=== PATIENT | female | born 1990 | race Caucasian/White ===

== ENCOUNTER 2017-04-25 09:51 | Emergency (ER) | payer OTHER ==
[2017-04-25 09:59] VITALS: BMI 22.1
[2017-04-25 10:00] VITALS: TEMP 98.4
--- NOTE | 2017-04-25 10:21 | ED PDOC ---
Arrival/HPI - General Historian: Patient - History of Present Illness Time/Duration: 24 hours Symptom Onset: Sudden Symptom Course: Unchanged Context: Home <KleberanayeliJanet - Last Filed: 04/25/17 18:07> <Kevin Matos - Last Filed: 04/25/17 18:27> - General Chief Complaint: Shortness Of Breath Time Seen by Provider: 04/25/17 09:55 - History of Present Illness Narrative History of Present Illness (Text): 04/25/17 10:17 26 year old female with past medical history of nephrolithiasis presents for SOB that began last night. Patient states that as she was trying to go to sleep , she began to feel SOB and was unable to catch her breath. Shortness of breath has been constant all the way to this morning. She denies using any thing for SOB. Also c/o subjective fevers and nausea. Denies having any cough, abd pain , chest pain, sick contacts. She recently returned from [place] on a long plane ride about 2 weeks ago. After the ride, patient felt her left lower leg was aching for a few days which she attributed to feeling tired. Ache went away on its own. No history of blood clots. No history of smoking or OCP use. (Janet Perez) Past Medical History - Provider Review Nursing Documentation Reviewed: Yes - Genitourinary/Gynecological Other/Comment: Kidney stones - Psychiatric Hx Substance Use: No <Janet Perez - Last Filed: 04/25/17 18:07> Family/Social History - Physician Review Nursing Documentation Reviewed: Yes Family/Social History: No Known Family HX Smoking Status: Never Smoked Hx Alcohol Use: No Hx Substance Use: No <Janet Perez - Last Filed: 04/25/17 18:07> Allergies/Home Meds <Janet Perez - Last Filed: 04/25/17 18:07> <Kevin Matos - Last Filed: 04/25/17 18:27> Allergies/Adverse Reactions: Allergies No Known Allergies Allergy (Verified 04/25/17 09:58) Home Medications: Home Meds Medication Instructions Recorded Confirmed No Known Home Med 04/25/17 04/25/17 Review of Systems - Review of Systems Constitutional: Fevers (subjective). absent: Fatigue, Night Sweats Eyes: Normal ENT: Normal. absent: Sore Throat, Rhinorrhea, Sinus Congestion Respiratory: SOB. absent: Cough, Sputum, Wheezing Cardiovascular: Normal. absent: Chest Pain, Palpitations, Edema, Calf Pain Gastrointestinal: Nausea. absent: Abdominal Pain, Constipation, Diarrhea, Vomiting Genitourinary Female: Normal. absent: Dysuria, Vaginal Bleeding Musculoskeletal: Normal Skin: Normal. absent: Rash, Skin Lesions Neurological: Normal. absent: Headache, Dizziness Endocrine: Normal. absent: Diaphoresis Hemo/Lymphatic: Normal Psychiatric: Normal. absent: Anxiety, Depression <Ana,Janet - Last Filed: 04/25/17 18:07> Physical Exam Temperature: Afebrile Blood Pressure: Normal Pulse: Tachycardic Respiratory Rate: Normal Appearance: Positive for: Well-Appearing, Non-Toxic, Comfortable Pain Distress: None Mental Status: Positive for: Alert and Oriented X 3 - Systems Exam Head: Present: Atraumatic, Normocephalic Pupils: Present: PERRL Extroacular Muscles: Present: EOMI Conjunctiva: Present: Normal Mouth: Present: Moist Mucous Membranes Respiratory/Chest: Present: Clear to Auscultation, Good Air Exchange. No: Respiratory Distress, Accessory Muscle Use, Wheezes, Decreased Breath Sounds, Rales, Retracting, Rhonchi Cardiovascular: Present: Normal S1, S2, Tachycardic. No: Murmurs, Irregular Rhythm, Rub, Gallop Abdomen: Present: Normal Bowel Sounds. No: Tenderness, Distention, Peritoneal Signs Upper Extremity: Present: Normal Inspection, NORMAL PULSES. No: Cyanosis, Edema Lower Extremity: Present: Normal Inspection, NORMAL PULSES. No: Edema, CALF TENDERNESS Neurological: Present: GCS=15, CN II-XII Intact, Speech Normal Skin: Present: Warm, Dry, Normal Color. No: Rashes Psychiatric: Present: Alert, Oriented x 3, Normal Insight, Normal Concentration <Ana,Janet - Last Filed: 04/25/17 18:07> Medical Decision Making - EKG Interpretation Interpreted by ED Physician: Yes Type: 12 lead EKG <Ana,Janet - Last Filed: 04/25/17 18:07> <Kevin Matos - Last Filed: 04/25/17 18:27> ED Course and Treatment: SOB likely due to PE vs. plueritis. Patient's Well score is 7.0. Will check: CBC BMP After kidney function is assessed, will check CTA PE protocol LE doppler US EKG Patient will be placed on NC 2 L 04/25/17 10:23 04/25/17 11:22 CXR is negative. LE US preliminary reading is negative. Urine done in ED was negative. Patient was sent to radiology after urine in ED was found to be negative. However, repeat urine test done in lab is positive. This was explained to patient and . 04/25/17 11:36 Discussed with patient and the result of the urine test is positive. Explained in detail the risks and benefits of patient getting CTA to rule out PE. Patient would like some time to decide about getting CTA as she is worried about the adverse effects this would have on the fetus. 04/25/17 13:02 Patient and are explained the blood test results in detail. D dimer is 0.47. Patient is agreeable to having CTA. 04/25/17 14:50 Patient is revaluated. [facility] is negative [facility] 04/25/17 14:52 04/25/17 14:52 (Janet Perez) 04/25/17 1808 Patient presents to the ED c/o shortness of breathe as detailed by resident. I agree with resident history and physical, disposition and plan. Patient's Upreg completed in the ED was negative as documented by Tech. CXR was completed. Then the lab reported a positive test. I explained to the patient and as well that this occurred. I also discussed with them the need for a CT Angio due to patient's current risk factors for PE. They were explained in detail the risk of exposure to radiation. He and his discussed this and agreed to study. CT Angio Chest negative for PE. Patient will f/u with an obygn and PMD that is covered under their insured they said. (Kevin Matos) - Lab Interpretations Lab Results: 04/25/17 11:35 04/25/17 11:35 Lab Results 04/25/17 11:35: Beta HCG, Quant 547.47 H 04/25/17 11:35: PT 10.7, INR 0.99, APTT 27.9, D-Dimer, Quantitative 0.47 04/25/17 11:35: Sodium 140, Potassium 3.6, Chloride 105, Carbon Dioxide 24, Anion Gap 15, BUN 9, Creatinine 0.5, Est GFR ( Amer) > 60, Est GFR (Non- Af Amer) > 60, Random Glucose 87, Calcium 8.9 04/25/17 11:35: WBC 11.0, RBC 4.68, Hgb 13.7, Hct 41.1, MCV 87.8, MCH 29.3, MCHC 33.3, RDW 14.1, Plt Count 300, MPV 10.1 04/25/17 11:29: Urine HCG, Qual Positive 04/25/17 10:20: Urine HCG, Qual Positive - RAD Interpretation Narrative RAD Interpretations (Text): 04/25/17 11:22 CXR negative. LE US preliminary reading is negative (Janet Perez) Radiology Orders: 04/25/17 10:08 CXR (PA/LAT) [CHEST TWO VIEWS (PA/LAT)] [RAD] Stat DUPLEX LOWER EXTRM VEIN BILAT [US] Stat 04/25/17 12:03 ANGIO CHEST PE PROTOCOL [CT] Stat - EKG Interpretation EKG Interpretation (Text): 04/25/17 10:25 NSR HR 101, No ST changes noted. Normal axis. Normal intervals (Janet Perez) - Medication Orders Current Medication Orders: Discontinued Medications Iodixanol (Visipaque 320 Mg/Ml 100 Ml) Confirm Administered Dose 100 ml IV .[facility]- MED ONE Stop: 04/25/17 13:13 Wells Criteria for PE - Wells Criteria for Pulmonary Embolism Clinical Signs and Symptoms of DVT: Yes P.E is #1 Diagnosis, or Equally Likely: Yes Heart Rate >100: Yes Immobilization at least 3 days;Surgery previous 4 weeks: Yes Previous, objectively diagnosed PE or DVT: No Hemoptysis: No Malignancy w/treatment within 6 months, or palliative: No Total Score: 7.0 <Janet Perez - Last Filed: 04/25/17 18:07> - Wells Criteria for Pulmonary Embolism Clinical Signs and Symptoms of DVT: Yes P.E is #1 Diagnosis, or Equally Likely: Yes Heart Rate >100: Yes Immobilization at least 3 days;Surgery previous 4 weeks: Yes Previous, objectively diagnosed PE or DVT: No Hemoptysis: No Malignancy w/treatment within 6 months, or palliative: No Total Score: 7.0 <Kevin Matos - Last Filed: 04/25/17 18:27> Disposition/Present on Arrival - Present on Arrival Any Indicators Present on Arrival: No History of DVT/PE: No History of Uncontrolled Diabetes: No Urinary Catheter: No History of Decub. Ulcer: No History Surgical Site Infection Following: None - Disposition Have Diagnosis and Disposition been Completed?: Yes Disposition Time: 14:53 Patient Plan: Discharge <Janet Perez - Last Filed: 04/25/17 18:07> <BlakeAlo ahmadiredo Diogo - Last Filed: 04/25/17 18:27> - Disposition Diagnosis: Pleuritis Disposition: HOME/ ROUTINE Condition: STABLE Additional Instructions: Riri Brooks, thank you for letting us take care of you today. Your provider was Dr. Janet Perez. You were treated for pleuritis. The emergency medical care you received today was directed at your acute symptoms. If you were prescribed any medication, please fill it and take as directed. It may take several days for your symptoms to resolve. Return to the Emergency Department if your symptoms worsen, do not improve, or if you have any other problems. Please contact your doctor or call one of the physicians/clinics you have been referred to that are listed on the Patient Visit Information form that is included in your discharge packet. Bring any paperwork you were given at discharge with you along with any medications you are taking to your follow up visit. Our treatment cannot replace ongoing medical care by a primary care provider (PCP) outside of the emergency department. Thank you for allowing the [facility] team to be part of your care today. If you had an X-Ray or CT scan: A Radiologist will review the ED reading if any change in treatment is needed we will contact you. If you had a blood, urine, or wound culture: It will take several days for the results, if any change in treatment is needed we will contact you. If you had an STI test: It will take 48 hours for the results. Please call after 1 week if you have not heard back. Referrals: PCP,NO [Primary Care Provider] - Follow up with primary Forms: [employer] (Sudanese)
[2017-04-25 10:30] VITALS: O2SAT 100
--- NOTE | 2017-04-25 10:56 | RAD ---
HISTORY: chest pain COMPARISON: No prior. TECHNIQUE: Chest PA and lateral FINDINGS: LUNGS: No active pulmonary disease. PLEURA: No significant pleural effusion identified. No pneumothorax apparent. CARDIOVASCULAR: Normal. OSSEOUS STRUCTURES: No significant abnormalities. VISUALIZED UPPER ABDOMEN: Normal. OTHER FINDINGS: None. IMPRESSION: No active disease.
[2017-04-25 11:48] LABS: HEMOGLOBIN 13.7 gm/dL (12.0-16.0); MEAN CELL VOLUME 87.8 fL (80.0-105.0); MEAN CORPUSCULAR HEMOGLOBIN 29.3 pg (25.0-35.0); MEAN CORPUSCULAR HGB CONC 33.3 g/dl (31.0-37.0); MEAN PLATELET VOLUME 10.1 fl (7.0-11.0); RBC 4.68 10^6/uL (3.5-6.1); RED CELL DISTRIBUTION WIDTH 14.1 % (11.5-14.5)
[2017-04-25 12:03] LABS: INR 0.99 (0.93-1.08); PARTIAL THROMBOPLASTIN TIME 27.9 Seconds (23.7-30.8); PROTHROMBIN TIME 10.7 Seconds (9.9-11.8)
[2017-04-25 12:04] LABS: BLOOD UREA NITROGEN 9 mg/dL (7-21); CALCIUM 8.9 mg/dL (8.4-10.5); GFR AFRICAN-AMERICAN > 60; GFR NON-AFRICAN AMERICAN > 60
[2017-04-25 12:05] LABS: D DIMER 0.47 mg/L FEU (0-0.50)
--- NOTE | 2017-04-25 12:56 | US ---
HISTORY: Leg pain and swelling. Evaluate for DVT PHYSICIAN(S): Oziel Lundy MD. TECHNIQUE: Duplex sonography and color-flow Doppler with graded compression were used to evaluate the deep venous systems of both lower extremities. FINDINGS: The visualized deep venous systems of both lower extremities are sonographically normal and compressible. Normal wave forms and augmentation are seen. There is no sonographic evidence for deep venous thrombosis in the visualized segments of both lower extremities. IMPRESSION: No sonographic evidence for deep venous thrombosis in the visualized segments of both lower extremities.
[2017-04-25] MEDS ORDERED: Iodixanol 320 MG/ML 100 ML BOTTLE IV ONE (13:12)
--- NOTE | 2017-04-25 14:10 | CT ---
PROCEDURE: CT Chest with contrast (Pulmonary Angiogram) HISTORY: SOB r/o PE COMPARISON: None available. TECHNIQUE: Axial computed tomography images were obtained of the chest in the pulmonary arterial phase of enhancement. Coronal and sagittal reformatted images were created and reviewed. Intravenous contrast dose: 100 cc of Visipaque Radiation dose: Total exam DLP = 323 mGy-cm. This CT exam was performed using one or more of the following dose reduction techniques: Automated exposure control, adjustment of the mA and/or kV according to patient size, and/or use of iterative reconstruction technique. FINDINGS: PULMONARY ARTERIES: Unremarkable. No pulmonary embolism. AORTA: No acute findings. No thoracic aortic aneurysm. LUNGS: Unremarkable. No nodule, mass or pulmonary consolidation. PLEURAL SPACES: Unremarkable. No effusion or pneuomothorax. HEART: Unremarkable. No cardiomegaly. No significant pericardial effusion. LYMPH NODES: No lymphadenopathy. BONES, CHEST WALL: Unremarkable. No fracture or destructive lesion OTHER FINDINGS: Unremarkable. IMPRESSION: Unremarkable CT pulmonary angiogram. No pulmonary embolus.
[2017-04-25 15:00] VITALS: BP 124/70; PULSE 65; RESP 17
--- NOTE | 2017-04-26 08:43 | CARD ---
APPROVED REPORT EKG Measurement Heart [id number] <Conclusion> Sinus tachycardia Otherwise normal ECG
== END 2017-04-25 15:00 | disposition home or self-care (01) ==
LOC: ED 09:51
DX: R09.1 Pleurisy (principal)
CPT/HCPCS: 71020; 71275; 80048; 84702; 84703; 85027; 85378; 85610; 85730; 93005; 93970; 99285; Q9967

== ENCOUNTER 2017-09-23 16:38 | Emergency (ER) | payer MEDICAID ==
[2017-09-23 16:38] VITALS: BMI 27.7
[2017-09-23 16:57] VITALS: BP 128/78; PULSE 76; RESP 18; TEMP 98.3; O2SAT 98
[2017-09-23] MEDS ORDERED: Sodium Chloride 0.9% 500 ML IV STA (17:51)
[2017-09-23 18:06] LABS: BASO # 0.01 K/mm3 (0.0-2.0); BASO % 0.1 % (0.0-3.0); EOS # 0.1 (0.0-0.7); GRAN # 11.27 (1.4-6.5); GRAN % 80.8 % (50.0-68.0); HEMOGLOBIN 9.7 g/dL (12.0-16.0); LYMPH # 1.8 (1.2-3.4); LYMPH % 12.8 % (22.0-35.0); MEAN CORPUSCULAR HEMOGLOBIN 26.5 pg (25.0-35.0); MEAN CORPUSCULAR HGB CONC 31.2 g/dl (31.0-37.0); MEAN PLATELET VOLUME 10.1 fl (7.0-11.0); MONO # 0.7 (0.1-0.6); MONO % 5.3 % (1.0-6.0); RBC 3.66 10^6/uL (3.5-6.1); RED CELL DISTRIBUTION WIDTH 15.1 % (11.5-14.5)
[2017-09-23 18:19] LABS: ALB/GLOB RATIO 0.9 (1.1-1.8); ALBUMIN 3.5 g/dL (3.0-4.8); ALT/SGPT 38 U/L (7-56); AST/SGOT 26 U/L (14-36); BLOOD UREA NITROGEN 7 mg/dL (7-21); CALCIUM 9.1 mg/dL (8.4-10.5); GFR AFRICAN-AMERICAN > 60; GFR NON-AFRICAN AMERICAN > 60
[2017-09-23 18:35] LABS: URINE BILIRUBIN NEGATIVE (NEGATIVE); URINE BLOOD SMALL (NEGATIVE); URINE GLUCOSE (UA) NEGATIVE (NEGATIVE); URINE LEUKOCYTE ESTERASE SMALL Leu/uL (NEGATIVE); URINE NITRATE NEGATIVE (NEGATIVE); URINE PROTEIN NEGATIVE mg/dL (<30 mg/dL); URINE UROBILINOGEN 0.2 E.U./dL (<1 E.U./dL)
[2017-09-23 18:37] LABS: URINE APPEARANCE CLEAR (CLEAR); URINE COLOR YELLOW (YELLOW)
[2017-09-23 18:46] LABS: INR 1.02 (0.93-1.08); PARTIAL THROMBOPLASTIN TIME 21.7 Seconds (25.1-36.5); PROTHROMBIN TIME 11.1 SECONDS (9.4-12.5)
[2017-09-23 19:21] LABS: URINE BACTERIA NEG (NEG); URINE RBC 0 - 2 /hpf (0-2)
--- NOTE | 2017-09-23 19:25 | US ---
EXAM: US Abdomen Complete EXAM DATE/TIME: 09/23/2017 5:53 PM CLINICAL HISTORY: 27 years old, female; Pain; Abdominal pain; Generalized; ; Additional info: Upper abd pain, 6 months TECHNIQUE: Real-time ultrasound of the abdomen (complete) with image documentation. COMPARISON: There are no prior studies for comparison. FINDINGS: Liver: There is hepatopedal flow in the main portal vein.Liver is unremarkable. Gallbladder: Gallbladder is distended with no stones, sludge or wall thickening. Common bile duct: Common bile duct measures approximately 4 mm in diameter. Pancreas: Pancreas is partially obscured by bowel gas. Visualized portions unremarkable. Kidneys: Kidneys are unremarkable. Spleen: Spleen is unremarkable. Aorta: Visualized portions of the aorta and inferior vena cava are unremarkable. Inferior vena cava: See above. IMPRESSION: Slightly limited evaluation of the pancreas, study is otherwise normal Patient was not tender over the gallbladder
--- NOTE | 2017-09-23 19:32 | US ---
EXAM: US After First Trimester, Transabdominal EXAM DATE/TIME: 09/23/2017 5:52 PM CLINICAL HISTORY: 27 years old, female; Pain; Other: Abd pain; Gestational age or lmp: 03/25/2017; ; Additional info: Abdominal pain, 6 months TECHNIQUE: Real-time transabdominal obstetrical ultrasound of the maternal pelvis and a second or third trimester with image documentation. COMPARISON: There are no prior studies for comparison. FINDINGS: Fetus: There is a single living intrauterine gestation in breech presentation. There is a heart rate of 144 beats per minute. motion was seen on real time. Placenta: Placenta is anterior with no previa or abruption. Amniotic fluid: Amnionic fluid volume appears normal Anatomy: There is a four-chamber heart and three-vessel cord. Fluid is seen in the stomach and bladder. Brain and spine appear intact. Kidneys are seen in the flanks [employer] Gestational age by US: 26 weeks 2 days EFW: 914 g BPD: 6.4 cm, 26 weeks 0 days HC: 23.9 cm, 26 weeks 0 days AC: 21.5 cm 26 weeks 0 days FL: 4.9 cm, 26 weeks 6 days MATERNAL: Cervix: Cervix measures approximately 5 cm in length IMPRESSION: 26 week 2 day single breech fetus, estimated dated delivery 12/28/17
[2017-09-23] MEDS ORDERED: cefTRIAXone 1 gm 1 GM/100 ML BAG IVPB STA (19:51)
--- NOTE | 2017-09-23 19:52 | ED PDOC ---
Arrival/HPI - General Chief Complaint: Abdominal Pain Time Seen by Provider: 09/23/17 17:32 Historian: Patient - History of Present Illness Narrative History of Present Illness (Text): 09/23/17 21:24 27 yo F who is 6 months , reports developing constant non-radiating upper abdominal pain which started 1 hour lpta. Reports no vaginal bleeding. Otherwise: (-) N/V, (-) fever, (-) urinary symptoms, (-) diarrhea, (-) chest pain, (-) SOB, (-) back pain. Has (+) care. NIGHT BAKER HISTORY: 1 Para 0 OB : [facility] Past Medical History - Provider Review Nursing Documentation Reviewed: Yes - Infectious Disease Hx of Infectious Diseases: None - Cardiac Hx Cardiac Disorders: No - Pulmonary Hx Respiratory Disorders: No - Neurological Hx Neurological Disorder: No - HEENT Hx HEENT Disorder: No - Renal Hx Renal Disorder: No - Endocrine/Metabolic Hx Endocrine Disorders: No - Hematological/Oncological Hx Blood Disorders: No - Integumentary Hx Dermatological Disorder: No - Musculoskeletal/Rheumatological Hx Musculoskeletal Disorders: No - Gastrointestinal Hx Gastrointestinal Disorders: No - Genitourinary/Gynecological Hx Genitourinary Disorders: Yes Other/Comment: Kidney stones - Psychiatric Hx Psychophysiologic Disorder: No Hx Substance Use: No - Surgical History Other/Comment: RENAL STENT Family/Social History - Physician Review Nursing Documentation Reviewed: Yes Family/Social History: No Known Family HX Smoking Status: Never Smoked Hx Alcohol Use: No Hx Substance Use: No Allergies/Home Meds Allergies/Adverse Reactions: Allergies No Known Allergies Allergy (Verified 09/23/17 16:42) Review of Systems - Review of Systems Constitutional: absent: Fatigue, Weight Change, Fevers Respiratory: absent: SOB, Cough, Sputum Cardiovascular: absent: Chest Pain, Palpitations, Edema Gastrointestinal: Abdominal Pain. absent: Stool Changes, Vomiting, Appetite Changes Genitourinary Female: absent: Dysuria, Frequency, Hematuria, Vaginal Bleeding, Vaginal Discharge Musculoskeletal: absent: Arthralgias, Back Pain, Neck Pain Skin: absent: Rash, Pruritis, Skin Lesions Neurological: absent: Headache, Dizziness, Focal Weakness Physical Exam - Physical Exam Narrative Physical Exam (Text): 09/23/17 21:22 GENERAL APPEARANCE: Patient is awake, alert, oriented x 3, in moderate painful distress. SKIN: Warm, dry; (-) cyanosis. EYES: (-) conjunctival pallor, (-) scleral icterus. ENMT: Mucous membranes moist. NECK: (-) tenderness, (-) stiffness, (-) lymphadenopathy. CHEST AND RESPIRATORY: (-) rales, (-) rhonchi, (-) wheezes; breath sounds equal bilaterally. HEART AND CARDIOVASCULAR: (-) irregularity; (-) murmur, (-) gallop. ABDOMEN AND GI: (-) distention. Bowel sounds active; (+) upper abdominal tenderness, (-) guarding, (-) rebound, (-) palpable masses, (-) CVA tenderness. EXTREMITIES: (-) deformity, (-) edema, (+) distal pulses. NEURO AND PSYCH: Mental status as above; (-) focal findings. Vital Signs Temp Pulse Resp BP Pulse Ox 09/23/17 16:57 98.3 F 76 18 128/78 98 Medical Decision Making ED Course and Treatment: 09/23/17 21:26 27 yo F who is 6 months , reports developing constant non-radiating upper abdominal pain which started 1 hour lpta. DDx : ahmet-morales contractions vs dyspepsia vs biliary colic Plan: -- Labs -- IV fluids -- Urinalysis -- Reassess and disposition -- US/ US ABD Bedside US done by JEWEL, normal heart activity was seen. However due to limitation in formal US training, patient was still sent to US stat. Labs reviewed. Patient noted to have a UTI. US results reviewed and shows no evidence of biliary colic or gallbladder disease. US shows +26 wk 2 day with a normal FHR. Diagnostic results d/w the patient. On re-evaluation, patient reports improvement of symptoms with no nausea, abdominal pain or vaginal bleeding at this time. Patient and family advised that the patient may have had ahmet-morales contraction or an episode of indigestion. Either way was advised that she must follow up with her OB physician in 1-2 days without fail. Advised to take medication as prescribed. Return to the emergency room at any time for any new or worsening symptoms. Patient states she fully agrees with and understands discharge instructions. States that she agrees with the plan and disposition. Verbalized and repeated discharge instructions and plan. I have given the patient opportunity to ask any additional questions. - Lab Interpretations Lab Results: 09/23/17 18:01 09/23/17 18:01 Lab Results 09/23/17 18:01: Lipase 50 09/23/17 18:01: Beta HCG, Quant 59166.00 H 09/23/17 18:01: Sodium 138, Potassium 3.6, Chloride 108 H, Carbon Dioxide 20 L, Anion Gap 14, BUN 7, Creatinine 0.4 L, Est GFR ( Amer) > 60, Est GFR (Non -Af Amer) > 60, Random Glucose 120 H, Calcium 9.1, Total Bilirubin 0.3, AST 26, ALT 38, Alkaline Phosphatase 116, Total Protein 7.3, Albumin 3.5, Globulin 3.8, Albumin/Globulin Ratio 0.9 L 09/23/17 18:01: Urine Color Yellow, Urine Appearance Clear, Urine pH 7.0, Ur Specific [place] 1.010, Urine Protein Negative, Urine Glucose (UA) Negative, Urine Ketones Negative, Urine Blood Small H, Urine Nitrate Negative, Urine Bilirubin Negative, Urine Urobilinogen 0.2, Ur Leukocyte Esterase Small H, Urine RBC 0 - 2, Urine WBC 2 - 5, Ur Epithelial Cells 6 - 8, Urine Bacteria Neg 09/23/17 18:01: PT 11.1, INR 1.02, APTT 21.7 L 09/23/17 18:01: WBC 14.0 H, RBC 3.66, Hgb 9.7 L, Hct 31.1 L, MCV 85.0 D, MCH 26.5, MCHC 31.2, RDW 15.1 H, Plt Count 267, MPV 10.1, Gran % 80.8 H, Lymph % ( Auto) 12.8 L, [place] % (Auto) 5.3, Eos % (Auto) 1.0 L, Baso % (Auto) 0.1, Gran # 11.27 H, Lymph # 1.8, [place] # 0.7 H, Eos # 0.1, Baso # 0.01 - RAD Interpretation Narrative RAD Interpretations (Text): 09/23/17 19:50 US : FINDINGS: Fetus: There is a single living intrauterine gestation in breech presentation. There is a heart rate of 144 beats per minute. motion was seen on real time. Placenta: Placenta is anterior with no previa or abruption. Amniotic fluid: Amnionic fluid volume appears normal Anatomy: There is a four-chamber heart and three-vessel cord. Fluid is seen in the stomach and bladder. Brain and spine appear intact. Kidneys are seen in the flanks BIOMETRICS Gestational age by US: 26 weeks 2 days EFW: 914 g BPD: 6.4 cm, 26 weeks 0 days HC: 23.9 cm, 26 weeks 0 days AC: 21.5 cm 26 weeks 0 days FL: 4.9 cm, 26 weeks 6 days MATERNAL: Cervix: Cervix measures approximately 5 cm in length IMPRESSION: 26 week 2 day single breech fetus, estimated dated delivery 12/28/17 Dictated and Authenticated by: Marina Hogan MD 09/23/2017 7:32 PM Eastern Time ([place] & [place]) US Abdomen : FINDINGS: Liver: There is hepatopedal flow in the main portal vein.Liver is unremarkable. Gallbladder: Gallbladder is distended with no stones, sludge or wall thickening. Common bile duct: Common bile duct measures approximately 4 mm in diameter. Pancreas: Pancreas is partially obscured by bowel gas. Visualized portions unremarkable. Kidneys: Kidneys are unremarkable. Spleen: Spleen is unremarkable. Aorta: Visualized portions of the aorta and inferior vena cava are unremarkable. Inferior vena cava: See above. IMPRESSION: Slightly limited evaluation of the pancreas, study is otherwise normal Patient was not tender over the gallbladder Dictated and Authenticated by: Marina Hogan MD 09/23/2017 7:24 PM Eastern Time ([place] & [place]) Radiology Orders: 09/23/17 17:52 AGE [US] Stat 09/23/17 17:53 ABDOMEN COMPLETE [US] Stat - Medication Orders Current Medication Orders: Discontinued Medications Sodium Chloride (Sodium Chloride 0.9%) 500 mls @ 1,000 mls/hr IV .Q30M STA Stop: 09/23/17 18:20 Last Admin: 09/23/17 16:50 Dose: 1,000 mls/hr eMAR Start Stop Document 09/23/17 16:50 TA (Rec: 09/23/17 20:48 TA [id number]) Intravenous Solution Start Date 09/23/17 Start Time 16:50 Ceftriaxone Sodium (Rocephin 1 Gram Ivpb) 1 gm in 100 mls @ 200 mls/hr IVPB STAT STA PRN Reason: Protocol Stop: 09/23/17 20:20 Last Admin: 09/23/17 20:49 Dose: Comments: Pt wanted to be d/c and start PO ABX - PA / PROMOTIONAL MODEL / Resident Statement / has reviewed & agrees with the documentation as recorded. Disposition/Present on Arrival - Present on Arrival Any Indicators Present on Arrival: No History of DVT/PE: No History of Uncontrolled Diabetes: No Urinary Catheter: No History of Decub. Ulcer: No History Surgical Site Infection Following: None - Disposition Have Diagnosis and Disposition been Completed?: Yes Diagnosis: Abdominal pain, UTI (urinary tract infection), Disposition: HOME/ ROUTINE Disposition Time: 20:30 Patient Plan: Discharge Condition: IMPROVED Discharge Instructions (ExitCare): (ED), Urinary Tract Infection in Women (ED), Acute Abdominal Pain (ED) Print Language: AUSTRALIAN Additional Instructions: Thank you for letting us take care of you today. You were treated for abdominal pain, , UTI. The emergency medical care you received today was directed at your acute symptoms. If you were prescribed any medication, please fill it and take as directed. It may take several days for your symptoms to resolve. Return to the Emergency Department if your symptoms worsen, do not improve, or if you have any other problems. Please contact your doctor in 2 days for re-evaluation and follow up. Bring any paperwork you were given at discharge with you along with any medications you are taking to your follow up visit. Our treatment cannot replace ongoing medical care by a primary care provider (PCP) outside of the emergency department. Thank you for allowing the [facility] team to be part of your care today. If you had an X-Ray or CT scan: A Radiologist will review the ED reading if any change in treatment is needed we will contact you. If you had a urine culture: It will take several days for the results, if any change in treatment is needed we will contact you. Prescriptions: Nitrofurantoin Macrocrystals [Macrobid] 100 mg PO BID #[id number] Referrals: Antonieta Laird, [Primary Care Provider] - Follow up with primary Forms: [employer] (Macedonian)
== END 2017-09-23 20:51 | disposition home or self-care (01) ==
LOC: ED 16:38
DX: O23.42 Unspecified infection of urinary tract in pregnancy, second trimester (principal); Z3A.26 26 weeks gestation of pregnancy; R10.9 Unspecified abdominal pain
CPT/HCPCS: 76700; 76815; 80053; 81001; 83690; 84702; 85025; 85610; 85730; 87086; 99284; J7040

== ENCOUNTER 2017-09-24 05:02 | Emergency (ER) | payer MEDICAID ==
[2017-09-24 05:21] VITALS: BMI 32.4
[2017-09-24 05:28] VITALS: RESP 18; TEMP 97.8
--- NOTE | 2017-09-24 05:28 | ED PDOC ---
Arrival/HPI - General Chief Complaint: Dizziness/Lightheaded Time Seen by Provider: 09/24/17 05:24 Historian: Patient, Spouse - History of Present Illness Narrative History of Present Illness (Text): 09/24/17 05:28 Riri Brooks is a 27 year old female, , currently 26 weeks pregnany, who presents to the Emergency department accompanied by complaining of stomach discomfort, chest discomfort, multiple episodes of vomiting, and dizziness tonight. Patient was seen in the Emergency department yesterday for upper abdominal pain. Patient had labs performed which were positive for UTI , given Rocephin in the ER and discharged home on Macrobid. Patient also had a US which showed: 26 week 2 day single breech fetus and Abdomen US which showed: slightly limited evaluation of the pancreas, study otherwise normal. states tonight patient woke up with symptoms, became concerned, and returned to ED. Patient denies any vaginal discharge, vaginal bleeding, fever, shortness of breath, diarrhea, urinary symptoms, back pain, neck pain, headache , dizziness, or any other complaints. Time/Duration: Other (tonight) Symptom Onset: Gradual Symptom Course: Unchanged Activities at Onset: Light Context: Home Past Medical History - Provider Review Nursing Documentation Reviewed: Yes - Infectious Disease Hx of Infectious Diseases: None - Cardiac Hx Cardiac Disorders: No - Pulmonary Hx Respiratory Disorders: No - Neurological Hx Neurological Disorder: No - HEENT Hx HEENT Disorder: No - Renal Hx Renal Disorder: No - Endocrine/Metabolic Hx Endocrine Disorders: No - Hematological/Oncological Hx Blood Disorders: No - Integumentary Hx Dermatological Disorder: No - Musculoskeletal/Rheumatological Hx Musculoskeletal Disorders: No - Gastrointestinal Hx Gastrointestinal Disorders: No - Genitourinary/Gynecological Hx Genitourinary Disorders: Yes Other/Comment: Kidney stones - Psychiatric Hx Psychophysiologic Disorder: No Hx Substance Use: No - Surgical History Other/Comment: RENAL STENT - Anesthesia Hx Anesthesia: No Hx Anesthesia Reactions: No Hx Malignant Hyperthermia: No Family/Social History - Physician Review Nursing Documentation Reviewed: Yes Family/Social History: Unknown Family HX Smoking Status: Never Smoked Hx Alcohol Use: No Hx Substance Use: No Allergies/Home Meds Allergies/Adverse Reactions: Allergies No Known Allergies Allergy (Verified 09/23/17 16:42) Home Medications: Home Meds Medication Instructions Recorded Confirmed No Known Home Med 09/24/17 09/24/17 Review of Systems - Physician Review All systems were reviewed & negative as marked: Yes - Review of Systems Constitutional: Normal. absent: Fevers Eyes: Normal ENT: Normal Respiratory: Normal. absent: SOB, Cough Cardiovascular: Chest Pain Gastrointestinal: Abdominal Pain, Nausea, Vomiting. absent: Diarrhea Genitourinary Female: Normal. absent: Dysuria, Frequency, Hematuria, Urine Output Changes, Vaginal Bleeding, Vaginal Discharge Musculoskeletal: Normal. absent: Back Pain, Neck Pain Skin: Normal. absent: Rash Neurological: Dizziness. absent: Headache Endocrine: Normal Hemo/Lymphatic: Normal Psychiatric: Normal Physical Exam Vital Signs Reviewed: Yes Vital Signs Temp Pulse Resp BP Pulse Ox 09/24/17 05:26 97.8 F 105 H 18 124/86 20 L Temperature: Afebrile Blood Pressure: Normal Pulse: Regular Respiratory Rate: Normal Appearance: Positive for: Well-Appearing, Non-Toxic Pain Distress: None Mental Status: Positive for: Alert and Oriented X 3 - Systems Exam Head: Present: Atraumatic, Normocephalic Pupils: Present: PERRL Extroacular Muscles: Present: EOMI Conjunctiva: Present: Normal Mouth: Present: Moist Mucous Membranes Neck: Present: Normal Range of Motion. No: Meningeal Signs, MIDLINE TENDERNESS , Paraspinal Tenderness Respiratory/Chest: Present: Clear to Auscultation, Good Air Exchange. No: Respiratory Distress, Accessory Muscle Use Cardiovascular: Present: Regular Rate and Rhythm, Normal S1, S2. No: Murmurs Abdomen: Present: Distention (Distention consistent with gestational age), Normal Bowel Sounds. No: Tenderness, Peritoneal Signs Back: Present: Normal Inspection Upper Extremity: Present: Normal Inspection. No: Cyanosis, Edema Lower Extremity: Present: Normal Inspection. No: Edema Neurological: Present: GCS=15, CN II-XII Intact, Speech Normal, Motor Func Grossly Intact, Normal Sensory Function, Normal Cerebellar Funct, Memory Normal Skin: Present: Warm, Dry, Normal Color. No: Rashes Psychiatric: Present: Alert, Oriented x 3, Normal Insight, Normal Concentration Medical Decision Making ED Course and Treatment: 09/24/17 05:28 Impression: 27 year old female complaining of stomach discomfort, chest discomfort, multiple episodes of vomiting, and dizziness tonight. Differential Diagnosis included but are not limited to: hyperemesis gravidarum vs. nausea Plan: -- Labs, lipase -- IV fluids -- Zofran -- Reassess and disposition Prior Visits: Notes and results from previous visits were reviewed. On 09/23/17, pt was seen in the Emergency department for upper abdominal pain. Pt noted to have UTI, given antibiotics. US showed: Fetus: 26 week 2 day single breech fetus, estimated dated delivery 12/28/17. US Abdomen shows: Slightly limited evaluation of the pancreas , study is otherwise normal. Pt was d/c home on Macrobid. Progress Notes: 09/24/17 05:36 Case discussed with ALEISHA Gomez senior quality control technician, who is aware and agrees with plan. Accepts pt on transfer. States she will notify [facility] OB ED of transfer. Transfer (Adult): Based upon the information available at the time of transfer, the medical benefits reasonably expected from the provision of medical treatment at [facility] outweigh the increased risk to the patient for transfer from this facility. I have described the inherent risks and benefits of the transfer to the patient, and patient agrees to transfer. I have spoken to ALEISHA Gomez senior quality control technician, who has agreed to accept transfer of the patient and provide further medical treatment at the receiving facility. At the time of transfer, copies of all medical records sent which related to the emergency condition for which the individual presented. These records include observations of signs or symptoms, preliminary clinical impression, treatment provided, results of any completed test and an informed written consent to the transfer. - Medication Orders Current Medication Orders: Sodium Chloride (Sodium Chloride 0.9%) 1,000 mls @ 100 mls/hr IV .Q10H AURELIO Discontinued Medications Ondansetron HCl (Zofran Inj) 4 mg IVP ONCE ONE Stop: 09/24/17 05:31 - Scribe Statement The provider has reviewed the documentation as recorded by the Kate Diana Provider Scribe Attestation: All medical record entries made by the Scribe were at my direction and personally dictated by me. I have reviewed the chart and agree that the record accurately reflects my personal performance of the history, physical exam, medical decision making, and the department course for this patient. I have also personally directed, reviewed, and agree with the discharge instructions and disposition. Disposition/Present on Arrival - Present on Arrival Any Indicators Present on Arrival: No History of DVT/PE: No History of Uncontrolled Diabetes: No Urinary Catheter: No History of Decub. Ulcer: No History Surgical Site Infection Following: None - Disposition Have Diagnosis and Disposition been Completed?: Yes Diagnosis: Hyperemesis affecting , antepartum, Third trimester Disposition: Transfer [facility] Disposition Time: 06:15 Condition: STABLE Forms: [employer] (French)
[2017-09-24] MEDS ORDERED: Sodium Chloride 0.9% 1,000 ML IV SCH (05:30)
[2017-09-24 06:13] LABS: HEMOGLOBIN 9.2 g/dL (12.0-16.0); MEAN CELL VOLUME 84.5 fl (80.0-105.0); MEAN CORPUSCULAR HGB CONC 30.8 g/dl (31.0-37.0); MEAN PLATELET VOLUME 9.8 fl (7.0-11.0); RBC 3.54 10^6/uL (3.5-6.1); RED CELL DISTRIBUTION WIDTH 15.1 % (11.5-14.5); WHITE BLOOD COUNT 14.8 10^3/ul (4.5-11.0)
[2017-09-24 06:14] VITALS: BP 122/84; PULSE 100; O2SAT 100
[2017-09-24 06:50] LABS: ALB/GLOB RATIO 0.9 (1.1-1.8); ALBUMIN 3.4 g/dL (3.0-4.8); ALT/SGPT 37 U/L (7-56); AST/SGOT 30 U/L (14-36); BLOOD UREA NITROGEN 9 mg/dL (7-21); CALCIUM 8.8 mg/dL (8.4-10.5); GFR AFRICAN-AMERICAN > 60; GFR NON-AFRICAN AMERICAN > 60; LIPASE 53 U/L (23-300)
== END 2017-09-24 06:20 | disposition short-term general hospital (02) ==
LOC: ED 05:02
DX: O21.0 Mild hyperemesis gravidarum (principal); Z3A.26 26 weeks gestation of pregnancy
CPT/HCPCS: 80053; 83690; 85027; 96374; 99285; J2405; J7040